=== PATIENT | male | born 1970 | race Asian ===

== ENCOUNTER 2017-06-10 19:02 | Emergency (ER) | payer OTHER, BC | END 2017-06-10 21:12 | disposition home or self-care (01) | LOC: EME 19:02 → TRA 19:02 → EME 21:12 | DX: S60.511A Abrasion of right hand, initial encounter (principal); R51 Headache; T14.8XXA Other injury of unspecified body region, initial encounter; V49.88XA Car occupant (driver) (passenger) injured in other specified transport accidents, initial encounter; Y92.410 Unspecified street and highway as the place of occurrence of the external cause; I10 Essential (primary) hypertension | CPT/HCPCS: 70450; 71045; 73130; 80048; 81003; 82150; 83690; 85025; 86850; 86900; 86901; 99281; 99285; G0480 ==